=== PATIENT | male | born 1970 | race Caucasian/White ===

== ENCOUNTER 2019-10-26 21:20 | Observation (INO) | payer OTHER, SELFPAY ==
--- NOTE | ~2019-10-26 | CT_ITS ---
EXAMINATION: CT abdomen pelvis w con EXAM DATE: 10/26/2019 22:49 INDICATION: Abdominal pain with elevated liver function tests. TECHNIQUE: Spiral CT of the abdomen and pelvis was performed following intravenous injection of 100 m L Omnipaque 350. Axial, coronal and sagittal images were reviewed. The dose-length product (DLP) fo r this examination was 1465.13 mGy-cm. The exposure was tailored according to patient size (auto mA exposure control), and iterative reconstruction (ASIR) was used as additional dose reduction techniqu e. There is no prior study for comparison. FINDINGS: Mild hepatic steatosis. The liver, spleen, adrenal glands and pancreas are otherwise unrem arkable. Gallbladder is unremarkable. No biliary obstruction. Portal and splenic veins are patent. Kidneys enhance symmetrically. There is no hydronephrosis. The prostate is unremarkable. The bl adder is unremarkable. There is no retroperitoneal or pelvic lymphadenopathy. Small bilateral ingu inal fat-containing hernias. The appendix is normal. The stomach and small bowel are unremarkable. There is expected amount of c olonic stool. There is mild to moderate colonic diverticulosis. colonic diverticulosis. There is no adjacent inflammatory change to suggest diverticulitis. No free intraperitoneal gas. The heart is normal in size. There are no pericardial or pleural effusions. Partially imaged right infrahilar ly mph node measuring about 1.2 x 1.7 cm, mildly enlarged. There are no osteoblastic or osteolytic lesi ons identified. IMPRESSION: 1. No acute intra-abdominal findings. 2. Probable right infrahilar lymphadenopathy. Recommend follow-up nonemergent chest CT. 3. Mild hepatic steatosis. 4. Mild to moderate scattered colonic diverticulosis. 5. Small inguinal fat-containing hernias. Reviewed, dictated and finalized at location G.
--- NOTE | ~2019-10-26 | XR_ITS ---
EXAMINATION: XR chest 1V portable EXAM DATE: 10/26/2019 21:48 INDICATION: Mid to left-sided chest pain. High blood pressure. TECHNIQUE: Portable AP frontal chest x-ray was obtained. There is no prior study for comparison. FINDINGS: The lungs are clear. There are no pleural effusions. Cardiomediastinal silhouette is norm al. There is no pneumothorax suspected. The bones and soft tissues are unremarkable. IMPRESSION: No acute cardiopulmonary findings. Reviewed, dictated and finalized at location A.
[2019-10-26 21:18] VITALS: BP 158/102; PULSE 113; RESP 20; TEMP 36.7; O2SAT 97
[2019-10-26 21:22] VITALS: O2SAT 97
--- NOTE | 2019-10-26 21:23 | ECG_ITS ---
Measurements Intervals Jerome Rate: 113 P: 44 SC: 195 QRS: 2 QRSD: 96 T: 42 QT: 334 QTc: 459 Interpretive Statements SINUS TACHYCARDIA MINIMAL Q WAVES- HIGH LATERAL LEADS ABNORMAL ECG Electronically Signed On 10-27-2019 6:58:46 CDT by Stanford Grossman D.O.
--- NOTE | 2019-10-26 21:29 | ED.CHESTPAIN ---
HPI - Chest Pain General Chief Complaint: Chest Pain Stated Complaint: cp Time Seen by Provider: 10/26/19 21:25 Source: RN notes reviewed History of Present Illness HPI narrative: Patient presents emergency department from home for chest pain. Patient states symptoms again approximately 1 hour ago. Pain is located across the anterior chest described as a pressure states the pain is improved at this time is down to a 2 out of 10. The pain does not radiate there is no associated symptoms denies any fevers or chills shortness of breath abdominal pain nausea vomiting or any other symptoms. Denies any previous cardiac history. Patient states he does feel anxious at this time Related Data Home Medications Medication Instructions Recorded Confirmed allopurinol 100 mg PO DAILY 06/08/19 06/08/19 losartan-hydrochlorothiazide 1 tablet PO DAILY 06/08/19 06/08/19 Allergies Allergy/AdvReac Type Severity Reaction Status Date / Time No Known Allergies Allergy Verified 10/26/19 21:22 Review of Systems Review of Systems: Narrative: Gen.: Denies fevers or chills ENT: Denies congestion Respiratory: Denies shortness of breath or cough CV: See HPI GI: Denies abdominal pain nausea, emesis or diarrhea Musculoskeletal: Denies back pain or muscle pain Neuro: Denies numbness, tingling, weakness or focal weakness Skin: Denies rash Except as documented, all other systems reviewed and negative [facility] Past Medical History Medical History (Updated 10/27/19 @ 01:22 by Ac Murray DO) Gout Hypertension Social History Social History (Updated 10/26/19 @ 21:30 by Ac Murray DO) Smoking status: Never smoker Exam Narrative: Exam Narrative: APPEARANCE: No acute distress, nontoxic, resting in bed EYES: EOMI HEENT: Normocephalic, atraumatic, OMM RESPIRATORY: No respiratory distress Clear to auscultation bilaterally with no rhonchi wheezing or rales. CARDIOVASCULAR: Regular rate and rhythm without murmurs rubs or gallops. ABDOMINAL: Soft, nontender, nondistended, no rebound or guarding MUSCULOSKELETAl: Moves all extremities. No clubbing, cyanosis or edema. NEURO: Awake and alert. Following commands, speech normal, no focal deficits SKIN:: Warm, dry. No rashes lesions or abrasions PSYCHIATRIC: Anxious in appearance Course Course Emergency Course: Patient states chest pain is resolved at this time Discussed with Dr. chappell presentation work-up agrees with admission of the chest pain center. We did discuss sinus tachycardia also discussed CT scan results and I will discuss with the patient need for follow-up as an outpatient for his lymphadenopathy Discussed with patient and family results of workup and diagnosis. Discussed need for admission. Patient and family understand and agree to current treatment plan. I discussed with patient infrahilar lymphadenopathy need to follow-up with PCP as an outpatient as well as elevated LFTs and need to follow-up as an outpatient Vital Signs Vital signs: Vital Signs Temperature 98.0 F 10/26/19 21:18 Pulse Rate 113 H 10/26/19 21:18 Respiratory Rate 20 10/26/19 21:18 Blood Pressure 158/102 H 10/26/19 21:18 Pulse Oximetry 97 10/26/19 21:18 Temperature 98.0 F 10/27/19 00:48 Pulse Rate 107 H 10/27/19 00:44 Respiratory Rate 16 10/27/19 00:44 Blood Pressure 147/97 H 10/27/19 00:44 Pulse Oximetry 95 10/27/19 00:44 MDM - Chest Pain Lab Data Result diagrams: 10/26/19 21:27 10/26/19 21:27 Labs: Lab Results 10/26/19 10/26/19 10/26/19 Range/Units 21:26 21:27 21:27 WBC 12.6 H (4.5-10.0) K/mm3 RBC 4.52 L (4.6-6.20) M/mm3 Hgb 14.9 (14.0-18.0) g/dL Hct 43.1 (42.0-52.0) % MCV 95.4 (80-100) fl MCH 33.0 (26-34) pg MCHC 34.6 (32-36) g/dl RDW 12.0 (11.5-14.5) % Plt Count 204 (150-375) k/mm3 MPV 9.6 (7.4-10.4) fl Immature Gran % (Auto) 0.6 H (0-0.5) % Neut % (Auto) 79.0
[2019-10-26 21:32] LABS: Basophils Absolute Auto 0.1 K/mm3 (0.0-0.1); Basophils Percent Auto 0.6 % (0.2-1.2); Eosinophils Absolute Auto 0.1 K/mm3 (0-0.3); Hematocrit 43.1 % (42.0-52.0); Hemoglobin 14.9 g/dL (14.0-18.0); Immature Granulocyte Absolute 0.08 K/mm3 (0.00-0.031); Immature Granulocyte Percent A 0.6 % (0-0.5); Lymphocytes Absolute Auto 1.04 K/mm3 (0.9-3.2); Lymphocytes Percent Auto 8.2 % (18.3-44.2); Mean Corpuscular HGB Conc 34.6 g/dl (32-36); Mean Corpuscular Volume 95.4 fl (80-100); Mean Platelet Volume 9.6 fl (7.4-10.4); Monocytes Absolute Auto 1.3 K/mm3 (0.1-0.6); Monocytes Percent Auto 10.6 % (2.6-8.5); Platelet Count Result 204 k/mm3 (150-375); Red Blood Count 4.52 M/mm3 (4.6-6.20); White Blood Count 12.6 K/mm3 (4.5-10.0)
[2019-10-26 21:43] LABS: Blood Urea Nitrogen 24 mg/dL (9-20); Calcium 9.5 mg/dL (8.4-10.2); Carbon Dioxide 25 mmol/L (22-30); Chloride 96 mmol/L (98-107); Estimated CRCL calculation 86 ml/min; Estimated Glomerular Filt Rate > 60; Glucose 130 mg/dL (75-110); Potassium 3.9 mmol/L (3.4-5.0); Sodium 133 mmol/L (137-145)
[2019-10-26 21:55] LABS: Troponin I < 0.012 ng/mL (0.000-0.034)
[2019-10-26] MEDS: SODIUM CHLORIDE 0.9% IV 1,000 ML 999 ML IV CONT (21:57)
[2019-10-26] MEDS: LORAZEPAM INJ 2 MG/ML VIAL 0.5 MG IV PUSH (21:58)
[2019-10-26 22:03] LABS: Prothrombin Time 12.8 Seconds (11.1-14.7)
[2019-10-26 22:05] LABS: Partial Thromboplastin Time 25.2 SECONDS (22.3-36.8)
[2019-10-26 22:15] LABS: Alanine Aminotransferase 133 U/L (4-50); Albumin Level 4.7 g/dL (3.5-5.1); Alkaline Phosphatase 127 U/L (38-126); Aspartate Amino Transferase 133 U/L (17-59); Bilirubin,Total 1.5 mg/dL (0.2-1.3); Lipase 114 U/L (23-300)
[2019-10-26 22:22] LABS: D Dimer < 0.22 ug/mL (<0.48)
[2019-10-26 23:24] VITALS: BP 146/92; PULSE 110; RESP 16; O2SAT 100
[2019-10-26] MEDS: MORPHINE SULFATE 2 MG/ML INJ IV PUSH (23:44)
[2019-10-27] VITALS (12 sets, daily range): BP systolic 119–147; BP diastolic 67–97; PULSE 94–111; RESP 12–20; TEMP 36.1–36.7; O2SAT 95–100; BMI 37.5
--- NOTE | 2019-10-27 | EST_ITS ---
Patient Info Name: Geovanni Nails Age: 49 years : 1970 Gender: Male Ht: 69 in Wt: 235 lbs BSA: 2.32 m2 HR: 94 bpm BP: 125 / 70 mmHg Heart Rhythm: Sinus Rhythm Exam Date: 10/27/2019 10:11 AM Exam Location: [facility] Patient Status: Outpatient Admit Date: 10/27/2019 Staff Ordering Physician: Reagan Ruby DO [employer]: Mary Cordova RDCS Attending Provider: REAGAN RUBY Referring Physician: Chauncey GAITAN; Exercise Technologist: Lucas Gonzalez RDCS, RT Exam Type: CA stress echo Study Info Indications - chest pain Treadmill exercise stress echocardiogram is performed. Summary 1. 1. Negative Edgar exercise stress test for ischemic ST changes by ECG criteria. 2. 2. Good functional capacity, achieving 10 METs of workload. 3. 3. Appropriate HR response to exercise. 4. 4. Appropriate HR recovery at 1 minute post exercise. 5. 5. Negative stress echocardiogram for ischemia by wall motion analysis. 6. 6. Patient informed of the above results. Stress Echo Findings Left Ventricle Appropriate increase in LV endocardial thickening with systole. Appropriate augmentation of contractility with systole. No wall motion abnormality. Left Ventricle Normal LV systolic function, no wall motion abnormality. Right Ventricle Dilated Right ventricle. Protocol: Edgar Stress ECG Details Stage: REST Duration (min): 1 min : 6 sec Speed (mph): 0.0 Grade (%): 0 HR (bpm): 99 SBP (mmHg): 125 DBP (mmHg): 70 METS: --- Stage: REST Duration (min): 19 min : 10 sec Speed (mph): 0.0 Grade (%): 0 HR (bpm): 101 SBP (mmHg): 125 DBP (mmHg): 70 METS: --- Stage: STAGE 1 Duration (min): 1 min : 0 sec Speed (mph): 1.7 Grade (%): 10 HR (bpm): 122 SBP (mmHg): 125 DBP (mmHg): 70 METS: --- Stage: STAGE 1 Duration (min): 2 min : 0 sec Speed (mph): 1.7 Grade (%): 10 HR (bpm): 133 SBP (mmHg): 125 DBP (mmHg): 70 METS: --- Stage: STAGE 1 Duration (min): 3 min : 0 sec Speed (mph): 1.7 Grade (%): 10 HR (bpm): 134 SBP (mmHg): 165 DBP (mmHg): 90 METS: --- Stage: STAGE 2 Duration (min): 1 min : 0 sec Speed (mph): 2.5 Grade (%): 12 HR (bpm): 142 SBP (mmHg): 165 DBP (mmHg): 90 METS: --- Stage: STAGE 2 Duration (min): 2 min : 0 sec Speed (mph): 2.5 Grade (%): 12 HR (bpm): 148 SBP (mmHg): 190 DBP (mmHg): 77 METS: --- Stage: STAGE 2 Duration (min): 3 min : 0 sec Speed (mph): 2.5 Grade (%): 12 HR (bpm): 142 SBP (mmHg): 190 DBP (mmHg): 77 METS: --- Stage: STAGE 3 Duration (min): 1 min : 0 sec Speed (mph): 3.4 Grade (%): 14 HR (bpm): 136 SBP (mmHg): 176 DBP (mmHg): 74 METS: --- Stage: STAGE 3 Duration (min): 2 min : 0 sec Speed (mph): 0.0 Grade (%): 0 HR (bpm): 139 SBP (mmHg): 176 DBP (mmHg): 74 METS: --- Stage: STAGE 3 Duration (min
[2019-10-27] MEDS: KETOROLAC 30 MG/ML VIAL (*BKC) IV PUSH (00:18)
[2019-10-27 01:08] LABS: Troponin I < 0.012 ng/mL (0.000-0.034)
[2019-10-27 04:12] LABS: Cholesterol 174 mg/dL (0-200); HDL Direct 70 mg/dL; Triglycerides 218 mg/dL (<150)
--- NOTE | 2019-10-27 04:20 | ECG_ITS ---
Measurements Intervals Maribel Rate: 94 P: 0 MN: 176 QRS: -11 QRSD: 100 T: 10 QT: 360 QTc: 452 Interpretive Statements SINUS RHYTHM NONSPECIFIC ST ELEVATION IN ANT/LAT LEADS- PROBABLY EARLY REPOLARIZATION BORDERLINE T WAVE ABNORMALITY- INFERIOR LEADS BASELINE ARTIFACT- I, III, AVR, AVL BORDERLINE ECG Electronically Signed On 10-27-2019 9:27:10 CDT by Stanford Grossman D.O.
[2019-10-27 04:24] LABS: LDL Cholesterol Direct 70 mg/dL
[2019-10-27 04:26] LABS: Troponin I < 0.012 ng/mL (0.000-0.034)
--- NOTE | 2019-10-27 08:05 | PM.IMHP ---
H&P: HPI History of Present Illness Chief complaint: chest pain, sinus tachycardia Narrative: Geovanni Nails is a 49 year old male Reason for admit: CP. 49 yr old man with a history of hypertension, gout and alcohol abuse presents to hospital due to chest pain. Reports it started at 7 pm last evening while cooking. He describes it as pressure like and throbbing across his chest 5/10 in intensity and he called ambulance. He was given NTG which did not provide relief. Upon arrival to ED he was given Morphine which helped a little. Then he was given Toradol which brougt his pain to 1/10 and then it completely resolved. No chest pains currently. He states that 5 days ago he had 3 consecutive sneezes while lying down that caused right flank pain and radiated up into his chest. He admits to drinking 5 vodka drinks a night. He can walk 2 miles without any problems. Denies orthopnea, PND, RUQ pain, edema, dizziness, palpitations. Review of Systems Review of Systems: All systems reviewed & are unremarkable except as noted in HPI and below Constitutional: Constitutional: Reports as per HPI Cardiovascular: Cardiovascular: Reports as per HPI, Reports chest pain, Denies leg edema and Denies lightheadedness Respiratory: Respiratory: Reports as per HPI, Denies dyspnea and Denies dyspnea on exertion Genitourinary: Genitourinary: Reports as per HPI Musculoskeletal: Musculoskeletal: Reports as per HPI Neurologic: Reports as per HPI and Denies Abnormal speech present [facility] Past Medical History Medical History (Updated 10/27/19 @ 08:09 by Stanford Grossman DO) Gout Hypertension Family History Family History (Updated 10/27/19 @ 02:10 by Danielle Bowen RN) Father Dementia Social History Social History (Updated 10/26/19 @ 21:30 by Ac Murray DO) Smoking status: Former smoker Tobacco type: cigarettes Additional smoking assessment comments: quit 18 years ago Meds Home Medications and Allergies Home Medications Medication Instructions Recorded Confirmed Type allopurinol 100 mg PO DAILY 06/08/19 10/27/19 History losartan-hydrochlorothiazide 1 tablet PO DAILY 06/08/19 10/27/19 History Allergies Allergy/AdvReac Type Severity Reaction Status Date / Time No Known Allergies Allergy Verified 10/26/19 21:22 Vital Signs Vital Signs - 24 hr 10/26/19 21:18 10/26/19 21:22 10/26/19 23:24 Temperature 98.0 F Pulse Rate 113 H 110 H Respiratory Rate 20 16 Blood Pressure 158/102 H 146/92 H Pulse Oximetry 97 97 100 10/27/19 00:14 10/27/19 00:44 10/27/19 00:48 Temperature 98.0 F 98.0 F Pulse Rate 107 H Respiratory Rate 16 Blood Pressure 147/97 H Pulse Oximetry 95 10/27/19 01:36 10/27/19 02:04 10/27/19 02:31 Temperature 97.5 F L 97.9 F Pulse Rate 102 H 111 H 111 H Respiratory Rate 17 20 Blood Pressure 129/83 146/79 H Pulse Oximetry 99 99 10/27/19 04:00 10/27/19 04:38 10/27/19 06:00 Temperature 98.0 F Pulse Rate 98 99 94 Respiratory Rate 20 Blood Pressure 120/67 Pulse Oximetry 97 Exam Const: General: comfortable and no acute distress Neck: Neck: no JVD Carotids: no bruits Resp: Auscultation: clear to auscultation bilaterally, no crackles, no rales, no rhonchi and no wheezes Cardio: Rate: regular rate Rhythm: regular rhythm Heart sounds: no murmurs GI: GI Palp: Yes Soft to palpation Neuro: Speech: normal speech Extrem: Right lower extremity: no edema Left lower extremity: no edema H&P: Results Labs Labs: Short CBC 10/26/19 Range/Units 21:27 WBC 12.6 H (4.5-10.0) K/mm3 Hgb 14.9 (14.0-18.0) g/dL Hct 43.1 (42.0-52.0) % Plt Count 204 (150-375) k/mm3 BMP 10/26/19 21:27 Sodium 133 L Potassium 3.9 Chloride 96 L Carbon Dioxide 25 BUN 24 H Creatinine 1.10 Glucose 130 H Calcium 9.5 Cardiac Enzymes 10/26/19 10/27/19 10/27/19 Range/Units 21:27 00:38 03:45 Troponin I < 0.012 < 0.012 <
[2019-10-27] MEDS: LOSARTAN POTASSIUM 50 MG TABLET PO (09:15)
[2019-10-27] MEDS: allopurinoL 100 MG TABLET PO (09:15)
[2019-10-27] MEDS: hydroCHLOROthiazide 12.5 MG CAPSULE PO (09:16)
--- NOTE | 2019-10-27 11:14 | PC.NURSE ---
This patient, Geovanni Nails, was transferred to [[facility] Bed 6] on 10/27/19 at 0920. Personal belongings sent with patient. Belongings list checked and signed with receiving [ ]. Report given to [ ZEN Bird]. Appropriate documentation sent with patient.
--- NOTE | 2019-10-27 11:33 | PM.DS ---
DS: Admitting Diagnosis Admitting Diagnosis Admitting Diagnosis: Chest pain, unspecified DS: Summary Time Spent with Patient Time attestation: Patient is 49 yr old man with history of hypertension, Gout and AYDEN (stopped using CPAP and was to get retested until sleep lab closed due to coronavirus) was admitted late last night for chest pain. It resolved. He was ruled out for UT by EKG and series of troponins. He had stress echocardiogram that was negative for ischemia. Vitals are stable. He had transaminitis with AST 133 and ALT 133 and alk phos 127. CT Abd shows mild hepatitic steatosis and probably right infrahilar lymphadenopathy that was partially seen on scan;Radiology recommends f/u CT scan. He will be discharged home to f/u with his PCP for musculoskeletal pains in his right flank and chest pains. He will need his liver enzymes monitored which is due to fatty liver and alcohol use. Advised to abstain from alcohol or limit to no more than 2 drinks a day. He will need f/u CT scan of chest in 3 months regarding infrahilar lymphadenompathy. Disposition: Home. Activity: as tolerated. Diet: Low fat, low sodium diet. F/U with PCP in next 1-2 weeks. Total time spent providing and/or coordinating discharge services: 10 minutes. DS: Data Data Completed and Pending Labs on day of discharge: Labs from last 24 hours 10/27/19 10/27/19 10/27/19 03:45 03:45 00:38 WBC RBC Hgb Hct MCV MCH MCHC RDW Plt Count MPV Immature Gran % (Auto) Neut % (Auto) Lymph % (Auto) Dane % (Auto) Eos % (Auto) Baso % (Auto) Lymph # (Auto) Dane # (Auto) Eos # (Auto) Baso # (Auto) Abs Immat Gran (auto) Absolute Neuts (auto) Absolute Nucleated RBC Nucleated RBC % PT INR APTT D-Dimer Sodium Potassium Chloride Carbon Dioxide BUN Creatinine Estim Creat Clear Calc Estimated GFR Glucose Calcium Total Bilirubin Direct Bilirubin AST ALT Alkaline Phosphatase Troponin I < 0.012 < 0.012 Total Protein Albumin Triglycerides 218 H Cholesterol 174 LDL Cholesterol Direct 70 HDL Direct 70 Lipase 10/26/19 10/26/19 10/26/19 21:27 21:27 21:27 WBC RBC Hgb Hct MCV MCH MCHC RDW Plt Count MPV Immature Gran % (Auto) Neut % (Auto) Lymph % (Auto) Dane % (Auto) Eos % (Auto) Baso % (Auto) Lymph # (Auto) Dane # (Auto) Eos # (Auto) Baso # (Auto) Abs Immat Gran (auto) Absolute Neuts (auto) Absolute Nucleated RBC Nucleated RBC % PT 12.8 INR 1.0 APTT 25.2 D-Dimer Cancelled < 0.22 Sodium 133 L Potassium 3.9 Chloride 96 L Carbon Dioxide 25 BUN 24 H Creatinine 1.10 Estim Creat Clear Calc 86 Estimated GFR > 60 Glucose 130 H Calcium 9.5 Total Bilirubin Direct Bilirubin AST ALT Alkaline Phosphatase Troponin I < 0.012 Total Protein Albumin Triglycerides Cholesterol LDL Cholesterol Direct HDL Direct Lipase 10/26/19 10/26/19 21:27 21:26 WBC 12.6 H RBC 4.52 L Hgb 14.9 Hct 43.1 MCV 95.4 MCH 33.0 MCHC 34.6 RDW 12.0 Plt Count 204 MPV 9.6 Immature Gran % (Auto) 0.6 H Neut % (Auto) 79.0 H Lymph % (Auto) 8.2 L Dane % (Auto) 10.6 H Eos % (Auto) 1.0 Baso % (Auto) 0.6 Lymph # (Auto) 1.04 Dane # (Auto) 1.3 H Eos # (Auto) 0.1 Baso # (Auto) 0.1 Abs Immat Gran (auto) 0.08 H Absolute Neuts (auto) 10.0 H Absolute Nucleated RBC 0.0 Nucleated RBC % 0.0 PT INR APTT D-Dimer Sodium Potassium Chloride Carbon Dioxide BUN Creatinine Estim Creat Clear Calc Estimated GFR Glucose Calcium Total Bilirubin 1.5 H Direct Bilirubin 0.0 AST 133 H ALT 133 H Alkaline Phosphatase 127 H Troponin I Total Protein 8.0 Albumin 4.7 Triglycerides
--- NOTE | 2019-10-27 12:40 | PC.NURSE ---
1210-pt given D/C orders and instructions. Questions answered and verbalized understanding. PIV removed intact. Ambulated per request to waiting vehicle. No distress noted or verbalized at time of departure.
== END 2019-10-27 12:10 | disposition home or self-care (01) ==
LOC: ANHED 10-27 01:22 → ANHIMU 10-27 01:30 → ANHCPC 10-27 09:25
PROVIDERS: Admitting Provider Internal Medicine Cardiovascular Disease; Emergency Provider Emergency Medicine; PCP Family Medicine; Visit Provider Internal Medicine Cardiovascular Disease
DX: R07.9 Chest pain, unspecified (principal); M10.9 Gout, unspecified; I10 Essential (primary) hypertension; F10.10 Alcohol abuse, uncomplicated; R74.0 Nonspecific elevation of levels of transaminase and lactic acid dehydrogenase [LDH]; R59.0 Localized enlarged lymph nodes; G47.33 Obstructive sleep apnea (adult) (pediatric); Z79.899 Other long term (current) drug therapy; Z87.891 Personal history of nicotine dependence
CPT/HCPCS: 36415; 71045; 74177; 80048; 80061; 80076; 83690; 84484; 85025; 85380; 85610; 85730; 93005; 93351; 99285; A9270; G0378; J1885; J2060; J2270; J7030; Q9967